=== PATIENT | female | born 1960 | race Caucasian/White ===

== ENCOUNTER 2017-03-06 07:14 | Emergency (ER) | payer OTHER ==
[2017-03-06] MEDS ORDERED: SODIUM CHLORIDE 0.9% 1,000 ML IV STA (08:06)
[2017-03-06] MEDS ORDERED: KETOROLAC 30 MG/ML 1 ML VIAL IVP STA (08:06)
[2017-03-06] MEDS ORDERED: HYDROmorphone 1 MG/ML 1 ML SYRINGE IVP STA (08:06)
[2017-03-06] MEDS ORDERED: ONDANSETRON 4 MG/2 ML VIAL IVP STA (08:06)
--- NOTE | 2017-03-06 08:11 | ED ---
Abdominal Pain HPI - General Chief Complaint: Abdominal Pain Stated Complaint: Left leg pain Time Seen by Provider: 03/06/17 08:05 Source: patient, RN notes reviewed Mode of arrival: wheelchair Limitations: no limitations - History of Present Illness Initial Comments: 56-year-old female presents emergency Department with chief complaint of left flank pain. Patient states she had a sudden onset of left flank pain that started around 3 AM this morning. Patient states nothing makes the pain feel better or worse. She did try taking Craigmont at home twice but no relief of pain. Patient states that she has no history kidney stones. Patient that she is nauseated and has had some vomiting. Denies chest pain, shortness breath, fever , chills, dysuria hematuria. Patient denies any trauma or any injuries. - Related Data Home Medications Medication Instructions Recorded Confirmed ALPRAZolam [Xanax] 1 mg PO HS 01/29/16 03/06/17 Citalopram Hydrobromide 40 mg PO HS 01/29/16 03/06/17 [Citalopram HBr] Cyclobenzaprine [Flexeril] 10 mg PO DAILY 01/29/16 03/06/17 Ergocalciferol [Vitamin D2 50,000 unit PO WEEKLY 01/29/16 03/06/17 (DRISDOL)] HYDROcodone/APAP 10-325MG [Craigmont 1 tab PO Q4-6H PRN 01/29/16 03/06/17 10-325] PHENobarbital 97.2 mg PO HS 01/29/16 03/06/17 Dextroamphetamine/Amphetamine 30 mg PO QAM 03/06/17 03/06/17 [Adderall Xr] Dextroamphetamine/Amphetamine 30 mg PO DAILY 03/06/17 03/06/17 [Adderall] PHENobarbital [Luminal] 16.2 mg PO HS 03/06/17 03/06/17 Previous Rx's Medication Instructions Recorded Ketorolac [Toradol] 10 mg PO Q8HR #15 tab 03/06/17 Levofloxacin [Levaquin] 500 mg PO DAILY #10 tab 03/06/17 Ondansetron Odt [Zofran Odt] 4 mg PO Q8HR PRN #10 tab 03/06/17 Allergies Allergy/AdvReac Type Severity Reaction Status Date / Time No Known Allergies Allergy Verified 03/06/17 07:49 Review of Systems ROS Statement: Those systems with pertinent positive or pertinent negative responses have been documented in the HPI. ROS Other: All systems not noted in ROS Statement are negative. Past Medical History Past Medical History: Seizure Disorder History of Any Multi-Drug Resistant Organisms: MRSA Date of last positivie culture/infection: 2013 MDRO Source:: hand Past Surgical History: Orthopedic Surgery, Tonsillectomy Past Psychological History: Anxiety, Depression Smoking Status: Current every day smoker Past Alcohol Use History: Occasional Past Drug Use History: None Reported General Exam Limitations: no limitations General appearance: alert, in no apparent distress Head exam: Present: atraumatic, normocephalic, normal inspection Respiratory exam: Present: normal lung sounds bilaterally. Absent: respiratory distress, wheezes, rales, rhonchi, stridor Cardiovascular Exam: Present: regular rate, normal rhythm, normal heart sounds. Absent: systolic murmur, diastolic murmur, rubs, gallop, clicks GI/Abdominal exam: Present: soft, tenderness (Minimal tenderness the left flank region patient's pain is essentially unchanged with palpation), normal bowel sounds. Absent: distended, guarding, rebound, rigid Back exam: Present: CVA tenderness (L). Absent: CVA tenderness (R) Neurological exam: Present: alert, oriented X3, CN II-XII intact Skin exam: Present: warm, dry, intact, normal color. Absent: rash Course Vital Signs 03/06/17 07:16 Temperature 98.0 F Pulse Rate 63 Respiratory 20 Rate Blood Pressure 134/80 O2 Sat by Pulse 100 Oximetry Medical Decision Making - Medical Decision Making Dr. Miranda discuss case with Dr. Fong who recommends antibiotics, pain medication and which she currently takes Craigmont and follow-up this week in office. Return parameters were discussed. - Lab Data Result diagrams: 03/06/17 07:45 03/06/17 07:45 Lab Results 03/06/17 03/06/17 03/06/17 Range/Units 07:45 07:45 09:15 WBC 11.1 H (3.8-10.6) k/uL RBC 4.47 (3.80-5.40) m/uL Hgb 12.9 (11.4-16.0) gm/dL Hct 39.5 (34.0-46.0) % MCV 88.4 (80.0-100.0) fL MCH 28.8 (25.0-35.0) pg MCHC 32.6 (31.0-37.0) g/dL RDW 13.8 (11.5-15.5) % Plt Count 263 (150-450) k/uL Neutrophils % 87 % Lymphocytes % 9 % Monocytes % 2 % Eosinophils % 1 % Basophils % 0 % Neutrophils # 9.6 H (1.3-7.7) k/uL Lymphocytes # 1.0 (1.0-4.8) k/uL Monocytes # 0.2 (0-1.0) k/uL Eosinophils # 0.1 (0-0.7) k/uL Basophils # 0.0 (0-0.2) k/uL Sodium 142 (137-145) mmol/L Potassium 3.5 (3.5-5.1) mmol/L Chloride 112 H (98-107) mmol/L Carbon Dioxide 21 L (22-30) mmol/L Anion Gap 9 mmol/L BUN 14 (7-17) mg/dL Creatinine 0.51 L (0.52-1.04) mg/dL Est GFR (MDRD) Af Amer >60 (>60 ml/min/1.73 sqM) Est GFR (MDRD) Non-Af >60 (>60 ml/min/1.73 sqM) Glucose 115 H (74-99) mg/dL Calcium 7.8 L (8.4-10.2) mg/dL Total Bilirubin 0.6 (0.2-1.3) mg/dL AST 26 (14-36) U/L ALT 34 (9-52) U/L Alkaline Phosphatase 96 (38-126) U/L Total Protein 6.7 (6.3-8.2) g/dL Albumin 3.6 (3.5-5.0) g/dL Amylase 63 (30-110) U/L Lipase 97 (23-300) U/L Urine Color Light Red Urine Appearance Cloudy H (Clear) Urine pH 6.0 (5.0-8.0) Ur Specific [place] 1.017 (1.001-1.035) Urine Protein 1+ H (Negative) Urine Glucose (UA) Negative (Negative) Urine Ketones Negative (Negative) Urine Blood Large H (Negative) Urine Nitrite Negative (Negative) Urine Bilirubin Negative (Negative) Urine Urobilinogen <2.0 (<2.0) mg/dL Ur Leukocyte Esterase Large H (Negative) Urine RBC >182 H (0-5) /hpf Urine WBC 104 H (0-5) /hpf Ur Squamous Epith Cells 3 (0-4) /hpf Urine Bacteria Rare H (None) /hpf Urine Mucus Rare H (None) /hpf Disposition Clinical Impression: Ureteral calculi, Left flank pain Disposition: HOME SELF-CARE Condition: Stable Instructions: Kidney Stones (ED) Additional Instructions: Please return to the Emergency Department if symptoms worsen or any other concerns. Prescriptions: Ketorolac [Toradol] 10 mg PO Q8HR #15 tab Levofloxacin [Levaquin] 500 mg PO DAILY #10 tab Ondansetron Odt [Zofran Odt] 4 mg PO Q8HR PRN #10 tab PRN Reason: Nausea Referrals: Hank Jason MD [Primary Care Provider] - 1-2 days Srikanth Trevino MD [STAFF PHYSICIAN] - 1-2 days Time of Disposition: 10:24
[2017-03-06 08:35] LABS: Basophils % (A) 0 %; CH 28.1; Eosinophils # (A) 0.1 k/uL (0-0.7); Eosinophils % (A) 1 %; HCT 39.5 % (34.0-46.0); HDW 2.39; HGB 12.9 gm/dL (11.4-16.0); Luc # (Auto) 0.12; Luc % (Auto) 1; Lymphocytes % (A) 9 %; MCH 28.8 pg (25.0-35.0); MCHC 32.6 g/dL (31.0-37.0); MCV 88.4 fL (80.0-100.0); Mean Platelet Volume 7.8; Monocytes # (A) 0.2 k/uL (0-1.0); Monocytes % (A) 2 %; Neutrophils # (A) 9.6 k/uL (1.3-7.7); Neutrophils % (A) 87 %; RBC 4.47 m/uL (3.80-5.40); RDW 13.8 % (11.5-15.5); WBC 11.1 k/uL (3.8-10.6); WBC (Perox) 11.44
--- NOTE | 2017-03-06 08:43 | XR ---
EXAMINATION TYPE: XR KUB DATE OF EXAM: 03/06/2017 8:34 AM CLINICAL HISTORY: Left-sided pain for 5 hours. TECHNIQUE: 2 upright KUB images of the abdomen are obtained COMPARISON: None. FINDINGS: Scattered gas is seen in non-distended small bowel loops. Gas and fecal material is seen in non-distended colon. Calcification in pelvis is favored calcified fibroid. There is 1.6 cm calcifi cation central left midabdomen at L2-L3 disc space level suspect renal pelvic stone. No pneumoperiton eum is seen. Heart size is mildly enlarged. Visualized osseous structures are demineralized. IMPRESSION: Overall nonobstructive bowel gas pattern. A 1.6 cm calculus centrally left kidney likel y in pelvis or possibly UPJ causing patient's symptoms. Urology follow-up advised.
[2017-03-06 08:48] LABS: ALT 34 U/L (9-52); AST 26 U/L (14-36); Alkaline Phosphatase 96 U/L (38-126); Amylase 63 U/L (30-110); Anion Gap 9 mmol/L; Blood Urea Nitrogen 14 mg/dL (7-17); Calcium 7.8 mg/dL (8.4-10.2); Carbon Dioxide 21 mmol/L (22-30); Chloride 112 mmol/L (98-107); Glucose 115 mg/dL (74-99); Non-African American GFR(MDRD) >60 (>60 ml/min/1.73 sqM); Sodium 142 mmol/L (137-145); Total Bilirubin 0.6 mg/dL (0.2-1.3); Total Protein 6.7 g/dL (6.3-8.2)
[2017-03-06 08:51] LABS: Potassium 3.5 mmol/L (3.5-5.1)
[2017-03-06 09:27] LABS: Appearance,Urine Cloudy (Clear); Bacteria,Urine Rare /hpf; Bilirubin,Urine Negative (Negative); Glucose,Urine (UA) Negative (Negative); Ketones,Urine Negative (Negative); Leukocyte Esterase,Urine Large (Negative); Mucus,Urine Rare /hpf; Nitrite,Urine Negative (Negative); Particle Count 7680; Protein,Urine 1+ (Negative); RBC,Urine >182 /hpf (0-5); Specific Gravity,Urine 1.017 (1.001-1.035); Squamous Epithelial Cell,Urine 3 /hpf (0-4); UA Billing (MACRO vs. MICRO) MICRO; Urobilinogen,Urine <2.0 mg/dL (<2.0); WBC,Urine 104 /hpf (0-5)
--- NOTE | 2017-03-06 09:31 | CT ---
EXAMINATION TYPE: CT abdomen pelvis wo con DATE OF EXAM: 03/06/2017 9:10 AM COMPARISON: NONE HISTORY: 56-year-old female Lt side pain CT DLP: 487 mGycm. Automated exposure control for dose reduction was used. TECHNIQUE: Contiguous axial scanning of the abdomen and pelvis without IV contrast. Coronal and sagit andrea reconstructions performed. FINDINGS: The heart is normal size without pericardial effusion. Mitral annular calcifications are noted. Promi nent dependent atelectasis is demonstrated. Calcification at the right hepatic dome could reflect prior granulomatous disease. Otherwise, noncont rast appearance of the liver, gallbladder, adrenal glands, right kidney, spleen, pancreas show no bertin ss abnormality. A couple small 7 mm hyperdense areas in the mid left kidney could represent tiny hemorrhagic cysts or early forming calculi. There is a 1.2 cm calculus at the left UPJ with mild hydronephrosis. There is asymmetric left renal e nlargement with perinephric stranding. Some scattered nonenlarged and borderline to mildly enlarged mesenteric lymph nodes are present measu ring up to 1 cm, coronal image 35. No dilated small bowel, free fluid, or free air. Normal appendix. Moderate stool burden without pericolonic inflammatory change. Bladder urine distended. Uterus is visualized with a a calcified posterior fundal fibroid measuring 1 .7 cm. Ovaries not clearly delineated from adjacent bowel loops. No abnormal fluid collection in the pelvis. 2. Mildly enlarged external iliac chain lymph nodes measuring up to 9 mm on the left. Bones: Mild degenerative changes at the hips. Additional degenerative changes lower lumbar spine. Sev ere endplate Schmorl's node of T9 through T11 and also L2 vertebral bodies. No osseous destructive pr ocess. IMPRESSION: 1. A 1.2 cm obstructive calculus at the left UPJ with mild hydronephrosis. The degree of renal enlar gement and perinephric stranding is somewhat out of proportion to the degree of hydronephrosis. Corre late to exclude superimposed infection. 2. A couple 7 mm hyperdense areas within the mid left kidney could represent tiny hemorrhagic cysts or early forming renal calculi. 3. Scattered nonenlarged and borderline to mildly enlarged mesenteric lymph nodes measuring up to 1 cm and borderline to mildly enlarged external iliac chain lymph node measuring up to 9 mm on the left . Findings probably reactive/post inflammatory. Consider follow-up in 3 months to ensure stability/re solution.
[2017-03-06] MEDS ORDERED: LEVOFLOXACIN 500 MG TAB PO STA (10:24)
[2017-03-06 10:32] VITALS: BP 126/71; PULSE 70; RESP 18; TEMP 97.4
== END 2017-03-06 10:40 | disposition home or self-care (01) ==
LOC: EC 07:14
DX: N20.1 Calculus of ureter (principal); R11.2 Nausea with vomiting, unspecified; M79.605 Pain in left leg; F41.9 Anxiety disorder, unspecified; F32.9 Major depressive disorder, single episode, unspecified; G40.909 Epilepsy, unspecified, not intractable, without status epilepticus; F17.200 Nicotine dependence, unspecified, uncomplicated; Z79.899 Other long term (current) drug therapy
CPT/HCPCS: 36415; 80053; 82150; 83690; 85025; 81001; 87086; 74000; 74176; 99284; 96374; 96375 ×2; 96361 ×2; J2405; J1885; J1170

== ENCOUNTER 2019-09-08 12:51 | Emergency (ER) | payer OTHER ==
[2019-09-08 12:57] VITALS: BP 114/69; PULSE 85; RESP 18; TEMP 97.7
--- NOTE | 2019-09-08 14:02 | XR ---
EXAMINATION TYPE: XR foot complete LT, XR ankle complete LT DATE OF EXAM: 09/08/2019 CLINICAL HISTORY: Left foot pain after fall a few days ago. TECHNIQUE: Frontal, lateral, and oblique images of the left foot and ankle are obtained. COMPARISON: None FINDINGS: There is mild diffuse subcutaneous edema. There is no acute fracture/dislocation evident i n the left foot. Type II os naviculare is incidentally seen. The joint spaces in the left foot appear within normal limits. The overlying soft tissue appears unremarkable. Small plantar heel spur is se en. No acute fracture or dislocation of the left ankle. Ankle mortise maintains normal alignment. Jose C ar dome is intact. Small Achilles heel spur. IMPRESSION: 1. Mild generalized soft tissue swelling with no acute fracture or dislocation in the left foot. 2. Incidentally noted type II os naviculare. If there is point tenderness consider os naviculare synd denisa.
--- NOTE | 2019-09-08 14:20 | ED ---
Lower Extremity Injury HPI - General Chief Complaint: Extremity Injury, Lower Stated Complaint: fall/ankle pain Time Seen by Provider: 09/08/19 13:00 Source: patient Mode of arrival: ambulatory Limitations: no limitations - History of Present Illness Initial Comments: Patient is a 59-year-old female presenting in the emergency Department with complaints of left ankle and foot pain after she fell yesterday. Patient states her legs gave out yesterday and she rolled her left ankle. Patient states she also had some right knee pain. She denies any previous injuries or surgeries to her right or left lower extremities. Patient states she's been having a hard time putting weight on her left foot. Patient denies any other injuries from the fall yesterday. Patient denies hitting her head, LOC, being on blood thinners. Patient has no other complaints at this time. Upon arrival to ER, vital signs are stable. - Related Data Home Medications Medication Instructions Recorded Confirmed PHENobarbital 97.2 mg PO HS 01/29/16 09/08/19 [id number] 2 tab PO Q4HR PRN 09/08/19 09/08/19 [Excedrin] PHENobarbital [Luminal] 32.4 mg PO HS 09/08/19 09/08/19 Ranitidine HCl [Zantac] 150 mg PO DAILY PRN 09/08/19 09/08/19 Allergies Allergy/AdvReac Type Severity Reaction Status Date / Time No Known Allergies Allergy Verified 09/08/19 14:03 Review of Systems ROS Statement: Those systems with pertinent positive or pertinent negative responses have been documented in the HPI. ROS Other: All systems not noted in ROS Statement are negative. Past Medical History Past Medical History: Seizure Disorder History of Any Multi-Drug Resistant Organisms: MRSA Date of last positivie culture/infection: 2013 MDRO Source:: hand Past Surgical History: Orthopedic Surgery, Tonsillectomy Past Psychological History: Anxiety, Depression Smoking Status: Current every day smoker Past Alcohol Use History: Rare Past Drug Use History: None Reported General Exam - General Exam Comments Initial Comments: GENERAL: Well-appearing, well-nourished and in no acute distress. HEAD: Atraumatic, normocephalic. EYES: Pupils equal round and reactive to light, extraocular movements intact, sclera anicteric, conjunctiva are normal. ENT: Moist mucous membranes. NECK: Normal range of motion, supple without lymphadenopathy or JVD. LUNGS: Breath sounds clear to auscultation bilaterally and equal. No wheezes rales or rhonchi. HEART: Regular rate and rhythm without murmurs, rubs or gallops. : Deferred EXTREMITIES: Pain with palpation of the left lateral malleolus as well as left lateral foot. There is mild swelling present. Patient has normal range of motion of her left ankle and foot. Neurovascular intact. She also has a small bruise on the medial aspect of the right knee. Patient has full range of motion of her right knee. NEUROLOGICAL: Cranial nerves II through XII grossly intact. Normal speech PSYCH: Normal mood, normal affect. SKIN: Warm, Dry, normal turgor, no rashes or lesions noted. Limitations: no limitations Course Vital Signs 09/08/19 12:53 Temperature 97.7 F Pulse Rate 85 Respiratory 18 Rate Blood Pressure 114/69 O2 Sat by Pulse 97 Oximetry Medical Decision Making - Medical Decision Making Patient is a 59-year-old female presenting with left ankle and foot pain as well as mild right knee pain after falling yesterday. Patient denies any other injuries from her fall. X-rays of her left foot and ankle revealed no acute abnormality.Incidental noted type II os naviculare. Patient will be given an George wrap for compression and will continue with ice, elevation. Patient will use walker at home and will continue to weight-bear as tolerated. Patient will follow up with her PCP if symptoms persist after one to 2 weeks. Patient is stable for discharge at this time and she is in agreement with this plan of care. Return parameters were discussed with the patient she verbalized understanding. Case discussed with Dr. Voss. Disposition Clinical Impression: Left foot pain, Left ankle sprain, Contusion of right knee Disposition: HOME SELF-CARE Condition: Stable Instructions (If sedation given, give patient instructions): Ankle Sprain (ED), Foot Contusion (ED) Additional Instructions: Please return to the Emergency Department if symptoms worsen or any other concerns. Alternate between ibuprofen and Tylenol for pain relief. Rest, ice, compression with George wrap as well as elevation for symptom relief. Up with orthopedics or PCP if symptoms persist over 1-2 weeks. Is patient prescribed a controlled substance at d/c from ED?: No Referrals: None,Stated [Primary Care Provider] - 1-2 days
== END 2019-09-08 14:37 | disposition home or self-care (01) ==
LOC: EC 12:51
DX: S93.402A Sprain of unspecified ligament of left ankle, initial encounter (principal); S80.01XA Contusion of right knee, initial encounter; G40.909 Epilepsy, unspecified, not intractable, without status epilepticus; F17.200 Nicotine dependence, unspecified, uncomplicated; Z79.899 Other long term (current) drug therapy; W19.XXXA Unspecified fall, initial encounter
CPT/HCPCS: 99283

== ENCOUNTER → 2023-08-28 | Outpatient (CLI) | payer MEDICARE, BC ==
[2023-08-28 16:11] LABS: ALT 50 U/L (8-44); AST 25 U/L (13-35); Albumin 4.5 d/dL (3.8-4.9); Alkaline Phosphatase 119 U/L (41-126); BUN/Creat Ratio 25.22 Ratio (12.00-20.00); Blood Urea Nitrogen 22.7 mg/dL (9.0-27.0); Calcium 9.7 mg/dL (8.7-10.3); Carbon Dioxide 26.5 mmol/L (21.6-31.8); Chloride 102 mmol/L (96-109); Glucose 107 mg/dL (70-110); Potassium 4.7 mmol/L (3.5-5.5); Sodium 142 mmol/L (135-145); T4, Free (Free Thyroxine) 1.16 ng/dL (0.80-1.80); Total Bilirubin 0.2 mg/dL (0.3-1.2); Total Protein 7.5 d/dL (6.2-8.2)
[2023-08-28 18:47] LABS: HGB 14.1 d/dL (12.0-15.0); MCH 27.4 pg (27.0-32.0); MCV 91.3 FL (80.0-97.0); Mean Platelet Volume 10.4 FL (9.5-12.2); NRBC Per 100 WBC 0 X 10*3/uL (0.00-0.01); Platelet Count 260 X 10*3/uL (140-440); RBC 5.15 X 10*6/uL (4.10-5.20); WBC 7.57 X 10*3/uL (4.50-10.00)
[2023-08-28 19:31] LABS: Erythrocyte Sedimentation Rate 15 mm/Hr (0-30)
[2023-08-29 14:47] LABS: C-ANCA <1:20 Titer (<1:20)
== END | disposition home or self-care (01) ==
LOC: LABWHC1 09:18
PROVIDERS: ATTEND Psychiatry & Neurology Neurology
DX: G44.89 Other headache syndrome (principal); G40.89 Other seizures; E55.9 Vitamin D deficiency, unspecified; F41.9 Anxiety disorder, unspecified; M54.2 Cervicalgia; G47.19 Other hypersomnia; M54.16 Radiculopathy, lumbar region; R06.83 Snoring; R20.2 Paresthesia of skin; R26.9 Unspecified abnormalities of gait and mobility; R41.840 Attention and concentration deficit
CPT/HCPCS: 36415; 80053; 82306; 82542; 82607; 83036; 84439; 84443; 85027; 85652; 86038; 86039; 86140; 86255; 86334; 86480; 86780

== ENCOUNTER 2023-10-19 09:39 | Day surgery (SDC) | payer MEDICARE, BC ==
[2023-10-17 13:41] VITALS: BMI 34.7
[~2023-10-19 09:39] MED LIST: LACTATED RINGERS 1,000 ML IV SCH; LIDOCAINE 1% (10MG/ML) FOR IV START INTRADERMA PRN
[2023-10-19 10:08] VITALS: TEMP 98.4
[2023-10-19] MEDS ORDERED: PROPOFOL 10 MG/ML 20 ML VIAL IV ONE (10:19)
[2023-10-19] MEDS ORDERED: LIDOCAINE 2% (PF) 20 MG/ML 5 ML VIAL ONE (10:19)
--- NOTE | 2023-10-19 10:52 | P.PCN ---
Date of Procedure: 10/19/23 Procedure(s) Performed: Brief history: Patient is a pleasant 63-year-old white female scheduled for an elective upper endoscopy as well as colonoscopy as a part of evaluation of GERD/ intermittent dysphagia to solids and screening for colon cancer Procedure performed: Esophagogastroduodenoscopy with biopsy and dilation Colonoscopy Preoperative diagnosis: Intermittent dysphagia to solids/GERD Screening for colon cancer Anesthesia: MAC Procedure: After informed consent was obtained from the patient was brought into the endoscopy unit and IV sedation was administered by anesthesia under continuous monitoring. Initially upper endoscopy was done. The Olympus GF 160 video endoscope was inserted inserted into the mouth and esophagus intubated without any difficulty and was gradually advanced into the stomach and duodenum and carefully examined. The bulb and second part of the duodenum appeared normal. The scope was then withdrawn into the stomach adequately insufflated with air and upon careful examination the antrum had mild gastritis and biopsies were done from this area. Cause of the body, cardia and fundus appeared normal. The scope was then withdrawn into the esophagus. The GE junction was located at 40 cm to the incisors. It appeared regular with no erythema erosions or ulc erations. There was a widely patent distal esophageal Schatzki's ring that was dilated with 18-20 mm TTS balloon for 60 seconds. Rest of the esophagus appeared normal. Patient tolerated the procedure well. At this time the patient continued to remain sedation. Initial digital rectal examination was normal. Olympus CF 160 video colonoscope was then inserted into the rectum and gradually advanced to the cecum without any difficulty. Careful examination was performed as the scope was gradually being withdrawn. The prep was excellent. The cecum, ascending colon, transverse colon, descending colon, sigmoid colon and rectum appeared normal. Retroflexion was performed in the rectum and no lesions were noted. Patient tolerated the procedure well. Impression: 1. Upper endoscopy revealed mild antral gastritis and distal esophageal Schatzki's ring status post balloon dilation using 18-20 mm TTS balloon 2. Colonoscopy was within normal limits with no evidence of colorectal neoplasia Recommendations: Findings of this examination were discussed with the patient as well as her family. She was advised to be on clear liquid diet for 2 hours. Continue with protonix 40 mg twice daily and follow antireflux measures. Recommend a repeat screening colonoscopy in 10 years
[2023-10-19 11:29] VITALS: BP 130/89; PULSE 75; RESP 16
== END 2023-10-19 11:25 | disposition home or self-care (01) ==
LOC: ORWHC2ENDO 09:39
PROVIDERS: ATTEND Internal Medicine Gastroenterology
DX: Z12.11 Encounter for screening for malignant neoplasm of colon (principal); K21.9 Gastro-esophageal reflux disease without esophagitis; K29.50 Unspecified chronic gastritis without bleeding; K22.2 Esophageal obstruction; F41.9 Anxiety disorder, unspecified; F32.A Depression, unspecified; Z79.899 Other long term (current) drug therapy
CPT/HCPCS: 88305; 43239; 43249; G0105; J2704; J2001; C1726; 45378

== ENCOUNTER 2023-11-12 15:50 | Inpatient (IN) | payer MEDICARE, BC ==
--- NOTE | 2023-11-12 17:28 | ED ---
General Adult HPI - General Chief complaint: Arrhythmia/Palpitations Stated complaint: high hr Time Seen by Provider: 11/12/23 16:36 Source: patient, RN notes reviewed Mode of arrival: ambulatory Limitations: no limitations - History of Present Illness Initial comments: Patient is a pleasant 63-year-old female presenting to the emergency department with concern for high heart rate. Patient did go to urgent care secondary to chest congestion which she has had for the past one week. Patient does have some mild associated dyspnea especially with lying down. No leg pain or leg swelling. No calf pain. No chest pain. No palpitations. No history of similar symptoms previously. No known history of cardiac dysrhythmia. Patient states her is a family history of atrial fibrillation. Patient denies any fever or nasal congestion or other upper respiratory symptoms. - Related Data Home Medications Medication Instructions Recorded Confirmed Amitriptyline HCl [Elavil] 100 mg PO HS 07/26/23 11/12/23 Cyclobenzaprine [Flexeril] 10 mg PO HS 07/26/23 11/12/23 Divalproex ER [Depakote ER] 750 mg PO HS 07/26/23 11/12/23 Melatonin [Melatonin ER] 10 mg PO HS 07/26/23 11/12/23 Cholecalciferol (Vitamin D3) 1,250 mcg PO DAILY 10/17/23 11/12/23 [Vitamin D3] Multivitamin [Multivitamins Adult 1 tab PO DAILY 10/17/23 11/12/23 Gummies] Previous Rx's Medication Instructions Recorded Pantoprazole [Protonix] 40 mg PO AC-BID #60 tab 07/27/23 Allergies Allergy/AdvReac Type Severity Reaction Status Date / Time hyoscyamine AdvReac Nausea Verified 11/12/23 17:56 Review of Systems ROS Statement: Those systems with pertinent positive or pertinent negative responses have been documented in the HPI. ROS Other: All systems not noted in ROS Statement are negative. Constitutional: Denies: fever Eyes: Denies: eye pain ENT: Denies: ear pain Respiratory: Reports: as per HPI Cardiovascular: Reports: orthopnea. Denies: chest pain, palpitations Endocrine: Denies: fatigue Gastrointestinal: Denies: abdominal pain Genitourinary: Denies: dysuria Past Medical History Past Medical History: GERD/Reflux, Seizure Disorder History of Any Multi-Drug Resistant Organisms: MRSA Date of last positivie culture/infection: 2013 MDRO Source:: hand Past Surgical History: Orthopedic Surgery, Tonsillectomy Additional Past Surgical History / Comment(s): finger Past Anesthesia/Blood Transfusion Reactions: No Reported Reaction Past Psychological History: Anxiety, Depression Smoking Status: Former smoker Past Alcohol Use History: None Reported Past Drug Use History: None Reported General Exam Limitations: no limitations General appearance: alert, in no apparent distress Eye exam: Present: normal appearance Neck exam: Present: normal inspection Respiratory exam: Present: normal lung sounds bilaterally Cardiovascular Exam: Present: tachycardia, irregular rhythm GI/Abdominal exam: Present: soft. Absent: tenderness Extremities exam: Present: normal inspection. Absent: pedal edema, calf tenderness Neurological exam: Present: alert Psychiatric exam: Present: normal affect, normal mood Skin exam: Present: normal color Course Vital Signs 11/12/23 16:12 Temperature 99.4 F Pulse Rate 149 H Respiratory 22 Rate Blood Pressure 118/78 O2 Sat by Pulse 98 Oximetry EKG Findings - EKG Results: EKG: interpreted by ERMD (Regular narrow complex tachycardia. Right axis. Nor mal QRS. No acute ST change.) Medical Decision Making - Medical Decision Making Repeat EKG interpreted by myself shows sinus rhythm with a rate of 91. IN 139. QRS 81. QT 369. QTC 418. Normal axis. Normal QRS. Nonspecific T waves. Was pt. sent in by a medical professional or institution (, PA, WHITE WORK CLEANER, urgent care, hospital, or fdc...) When possible be specific @ -Patient was sent in by urgent care Did you speak to anyone other than the patient for history (EMS, parent, family, police, friend...)? What history was obtained from this source @ -No Did you review nursing and triage notes (agree or disagree)? Why? @ -I reviewed and agree with nursing and triage notes Were old charts reviewed (outside hosp., previous admission, EMS record, old EKG, old radiological studies, urgent care reports/EKG's, fdc records)? Report findings @ -Previous chest x-ray reviewed Differential Diagnosis (chest pain, altered mental status, abdominal pain women, abdominal pain men, vaginal bleeding, weakness, fever, dyspnea, syncope, headache, dizziness, GI bleed, back pain, seizure, CVA, palpatations, mental health, musculoskeletal)? @ -Differential Palpitations Ventricular arrhythmias, atrial arrhythmias, myocardial infarction, anemia, thyrotoxicosis, electrolyte imbalance, hypokalemia, pulmonary embolism, pulmonary disease, drugs, alcohol, anxiety, stress.... This is not meant to be an all-inclusive list. EKG interpreted by me (3pts min.). @ -As above X-rays interpreted by me (1pt min.). @ -Chest x-ray shows no acute process CT interpreted by me (1pt min.). @ -Computed tomography scan shows posterior right infiltrate U/S interpreted by me (1pt. min.). @ -None done What testing was considered but not performed or refused? (CT, X-rays, U/S, labs)? Why? @ -None What meds were considered but not given or refused? Why? @ -None Did you discuss the management of the patient with other professionals (professionals i.e. , PA, WHITE WORK CLEANER, lab, RT, psych nurse, manager social services, supervisor [employer], teacher, water resources technical officer, dependency case manager)? Give summary @ -Case was discussed with Dr. Michel, who will admit covering Dr. bradford Was smoking cessation discussed for >3mins.? @ -No Was critical care preformed (if so, how long)? @ -No Were there social determinants of health that impacted care today? How? (Homelessness, low income, unemployed, alcoholism, drug addiction, transportation, low edu. Level, literacy, decrease access to med. care, [facility], rehab)? @ -No Was there de-escalation of care discussed even if they declined (Discuss DNR or withdrawal of care, Hospice)? DNR status @ -No What co-morbidities impacted this encounter? (DM, HTN, Smoking, COPD, CAD, Cancer, CVA, ARF, Chemo, Hep., AIDS, mental health diagnosis, sleep apnea, morbid obesity)? @ -None Was patient admitted / discharged? Hospital course, mention meds given and route, prescriptions, significant lab abnormalities, going to OR and other pertinent info. @ -Patient presents with cough and upper respiratory symptoms with tachycardia dysrhythmia. Patient did convert. Patient on reevaluation now has heart rate of 1:15. Another EKG will be ordered. Third EKG. Case was discussed with Dr. Michel, who will admit covering Dr. bradford. Patient will be admitted with consults with cardiology and pulmonary. Undiagnosed new problem with uncertain prognosis? @ -No Drug Therapy requiring intensive monitoring for toxicity (Heparin, Nitro, Insulin, Cardizem)? @ -No Were any procedures done? @ -No Diagnosis/symptom? @ -, Tachycardia dysrhythmia, pneumonia Acute, or Chronic, or Acute on Chronic? @ -Acute, acute Uncomplicated (without systemic symptoms) or Complicated (systemic symptoms)? @ -default Side effects of treatment? @ -No Exacerbation, Progression, or Severe Exacerbation? @ -No Poses a threat to life or bodily function? How? (Chest pain, [place], [place], pneumonia, PE, COPD, DKA, ARF, appy, cholecystitis, CVA, Diverticulitis, Homicidal, Suicidal, threat to staff... and all critical care pts) @ -No - Lab Data Result diagrams: 11/12/23 17:27 11/12/23 17:27 Lab Results 11/12/23 11/12/23 11/12/23 Range/Units 17:27 17:27 17:27 WBC 11.1 H (3.8-10.6) k/uL RBC 4.97 (3.80-5.40) m/uL Hgb 14.1 (11.4-16.0) gm/dL Hct 43.0 (34.0-46.0) % MCV 86.4 (80.0-100.0) fL MCH 28.4 (25.0-35.0) pg MCHC 32.8 (31.0-37.0) g/dL RDW 14.3 (11.5-15.5) % Plt Count 347 (150-450) k/uL MPV 7.3 Neutrophils % 79 % Lymphocytes % 14 % Monocytes % 4 % Eosinophils % 2 % Basophils % 0 % Neutrophils # 8.7 H (1.3-7.7) k/uL Lymphocytes # 1.6 (1.0-4.8) k/uL Monocytes # 0.4 (0-1.0) k/uL Eosinophils # 0.3 (0-0.7) k/uL Basophils # 0.0 (0-0.2) k/uL PT 10.1 (10.0-12.5) sec INR 0.9 (<1.2) APTT 24.4 (22.0-30.0) sec D-Dimer 0.97 H (<0.60) mg/L FEU Sodium 140 (137-145) mmol/L Potassium 4.9 (3.5-5.1) mmol/L Chloride 104 (98-107) mmol/L Carbon Dioxide 25 (22-30) mmol/L Anion Gap 11 mmol/L BUN 25 H (7-17) mg/dL Creatinine 0.59 (0.52-1.04) mg/dL Est GFR (CKD-EPI)AfAm >90 (>60 ml/min/1.73 sqM) Est GFR (CKD-EPI)NonAf >90 (>60 ml/min/1.73 sqM) Glucose 108 H (74-99) mg/dL Calcium 9.5 (8.4-10.2) mg/dL Magnesium 2.1 (1.6-2.3) mg/dL Total Bilirubin 0.6 (0.2-1.3) mg/dL AST 40 H (14-36) U/L ALT 28 (4-34) U/L Alkaline Phosphatase 121 (38-126) U/L Troponin I (0.000-0.034) ng/mL NT-Pro-B Natriuret Pep 360 pg/mL Total Protein 8.3 H (6.3-8.2) g/dL Albumin 4.4 (3.5-5.0) g/dL TSH 2.540 (0.465-4.680) mIU/L Influenza Type A (PCR) (Not Detectd) Influenza Type B (PCR) (Not Detectd) RSV (PCR) (Not Detectd) SARS-CoV-2 (PCR) (Not Detectd) 11/12/23 11/12/23 Range/Units 17:27 17:27 WBC (3.8-10.6) k/uL RBC (3.80-5.40) m/uL Hgb (11.4-16.0) gm/dL Hct (34.0-46.0) % MCV (80.0-100.0) fL MCH (25.0-35.0) pg MCHC (31.0-37.0) g/dL RDW (11.5-15.5) % Plt Count (150-450) k/uL MPV Neutrophils % % Lymphocytes % % Monocytes % % Eosinophils % % Basophils % % Neutrophils # (1.3-7.7) k/uL Lymphocytes # (1.0-4.8) k/uL Monocytes # (0-1.0) k/uL Eosinophils # (0-0.7) k/uL Basophils # (0-0.2) k/uL PT (10.0-12.5) sec INR (<1.2) APTT (22.0-30.0) sec D-Dimer (<0.60) mg/L FEU Sodium (137-145) mmol/L Potassium (3.5-5.1) mmol/L Chloride (98-107) mmol/L Carbon Dioxide (22-30) mmol/L Anion Gap mmol/L BUN (7-17) mg/dL Creatinine (0.52-1.04) mg/dL Est GFR (CKD-EPI)AfAm (>60 ml/min/1.73 sqM) Est GFR (CKD-EPI)NonAf (>60 ml/min/1.73 sqM) Glucose (74-99) mg/dL Calcium (8.4-10.2) mg/dL Magnesium (1.6-2.3) mg/dL Total Bilirubin (0.2-1.3) mg/dL AST (14-36) U/L ALT (4-34) U/L Alkaline Phosphatase (38-126) U/L Troponin I <0.012 (0.000-0.034) ng/mL NT-Pro-B Natriuret Pep pg/mL Total Protein (6.3-8.2) g/dL Albumin (3.5-5.0) g/dL TSH (0.465-4.680) mIU/L Influenza Type A (PCR) Not Detected (Not Detectd) Influenza Type B (PCR) Not Detected (Not Detectd) RSV (PCR) Not Detected (Not Detectd) SARS-CoV-2 (PCR) Not Detected (Not Detectd) Disposition Clinical Impression: Tachyarrhythmia, Pneumonia Disposition: ADMITTED IP TO THIS HOSP Is patient prescribed a controlled substance at d/c from ED?: No Referrals: Shadia Pritchard MD [Primary Care Provider] - 1-2 days Time of Disposition: 19:16
[2023-11-12 17:38] LABS: Basophils % (A) 0 %; Eosinophils # (A) 0.3 k/uL (0-0.7); Eosinophils % (A) 2 %; HGB 14.1 gm/dL (11.4-16.0); Lymphocytes # (A) 1.6 k/uL (1.0-4.8); Lymphocytes % (A) 14 %; MCH 28.4 pg (25.0-35.0); MCHC 32.8 g/dL (31.0-37.0); MCV 86.4 fL (80.0-100.0); Mean Platelet Volume 7.3; Monocytes # (A) 0.4 k/uL (0-1.0); Monocytes % (A) 4 %; Neutrophils # (A) 8.7 k/uL (1.3-7.7); Neutrophils % (A) 79 %; Platelet Count 347 k/uL (150-450); RBC 4.97 m/uL (3.80-5.40); RDW 14.3 % (11.5-15.5); WBC 11.1 k/uL (3.8-10.6)
--- NOTE | 2023-11-12 17:48 | XR ---
EXAMINATION TYPE: XR chest 2V DATE OF EXAM: 11/12/2023 COMPARISON: 01/29/2016, 07/26/2023 INDICATION: Dysrhythmia congestion TECHNIQUE: Frontal and lateral views of the chest are obtained. FINDINGS: The heart size is normal. The pulmonary vasculature is normal. The lungs are clear. IMPRESSION: 1. No acute pulmonary process.
[2023-11-12 17:50] LABS: ALT 28 U/L (4-34); AST 40 U/L (14-36); African American GFR (CKD) >90 (>60 ml/min/1.73 sqM); Albumin 4.4 g/dL (3.5-5.0); Alkaline Phosphatase 121 U/L (38-126); Anion Gap 11 mmol/L; Blood Urea Nitrogen 25 mg/dL (7-17); Calcium 9.5 mg/dL (8.4-10.2); Carbon Dioxide 25 mmol/L (22-30); Chloride 104 mmol/L (98-107); Glucose 108 mg/dL (74-99); Magnesium 2.1 mg/dL (1.6-2.3); Non-African American GFR(CKD) >90 (>60 ml/min/1.73 sqM); Potassium 4.9 mmol/L (3.5-5.1); Sodium 140 mmol/L (137-145); Total Bilirubin 0.6 mg/dL (0.2-1.3); Total Protein 8.3 g/dL (6.3-8.2)
[2023-11-12 17:53] LABS: INR 0.9 (<1.2); Partial Thromboplastin Time 24.4 sec (22.0-30.0); Prothrombin Time 10.1 sec (10.0-12.5)
[2023-11-12 17:58] LABS: NT-Pro-B-Type Natriuretic Pept 360 pg/mL
--- NOTE | 2023-11-12 19:06 | CT ---
CT CHEST FOR PULMONARY EMBOLISM. EXAMINATION TYPE: CT angio chest DATE OF EXAM: 11/12/2023 INDICATION: elevated HR and BP CT DLP: 382.9 mGycm, Automated exposure control for dose reduction was used. CONTRAST: Patient injected with 100 ml mL of Isovue 300. COMPARISON: None TECHNIQUE: CT of the chest is performed on a spiral scan at 2 mm thick sections. Study is performed with intravenous contrast timed for evaluation for pulmonary embolism. This will limit additional po rtions of the evaluation. 3-D MIP images reconstructed by the technologist are reviewed on the compu ter in the coronal and sagittal planes. FINDINGS: No persistent filling defects are evident to suggest an acute pulmonary embolism. No mediastinal or hilar adenopathy enlarged by CT criteria is evident. The ascending aorta diameter at the level of the main pulmonary artery is 3.6 cm. The main pulmonary artery diameter at the bifur cation is 2.9 cm. There is consolidation in the posterior right lung base. Underlying mass should be considered. Follow -up is recommended. Limited CT sections are obtained through the upper abdomen. There is moderate fatty transient liver. IMPRESSION: 1. No acute pulmonary embolism. 2. Posterior right lung consolidation. Correlate for pneumonia. Mass is not excluded and follow-up is recommended. 3. Moderate fatty infiltration of the liver.
[2023-11-12] MEDS ORDERED: SODIUM CHLORIDE 0.9% 1,000 ML IV STA (19:13)
[2023-11-12] MEDS ORDERED: AZITHROMYCIN 500 MG in SODIUM CHLORIDE 0.9% 250 ML IVPB STA (19:17)
[2023-11-12] MEDS ORDERED: PNEUMONIA PROTOCOL UTILIZED 1 EACH MISC PO PRN (19:17)
[2023-11-12] MEDS: MELATONIN 5 MG TABLET PO SCH (23:27)
[2023-11-12] MEDS: AMITRIPTYLINE HCL 50 MG TAB PO SCH (23:28)
[2023-11-12] MEDS: DIVALPROEX ER 250 MG TAB.ER.24H PO SCH (23:29)
[2023-11-13] MEDS: MULTIVITAMINS, THERA 1 EACH TAB PO SCH (08:54)
[2023-11-13] MEDS: AZITHROMYCIN 500 MG TAB PO SCH (08:54)
[2023-11-13] MEDS: CHOLECALCIFEROL 125 MCG (5000 IU) TABLET PO SCH (08:54)
[2023-11-13] MEDS: METOPROLOL SUCCINATE (ER) 25 MG TAB.ER.24H PO SCH (08:54)
[2023-11-13] MEDS: PANTOPRAZOLE 40 MG TABLET PO SCH ×2 (08:55→18:09)
--- NOTE | 2023-11-13 10:28 | XR ---
EXAMINATION TYPE: XR chest 2V DATE OF EXAM: 11/13/2023 COMPARISON: 11/12/2023 INDICATION: Pneumonia TECHNIQUE: Frontal and lateral views of the chest are obtained. FINDINGS: The heart size is normal. The pulmonary vasculature is normal. The lungs are clear. IMPRESSION: 1. No acute pulmonary process.
--- NOTE | 2023-11-13 10:34 | P.CRDCN ---
History of Present Illness Consult date: 11/13/23 Reason for Consult (text): tachyarrhythmia History of present illness: History of present illness: This is a 63-year-old female with no previous cardiac history, does not follow with a trader. She has a past medical history of seizure disorder, headache, neurology workup of her cervical and lumbar spine. patient was seen by cardiology in July 2023 for atypical chest painthought to be GI related. We have been asked to evaluate the patient for tachyarrhythmia. Patient states that she went to the walk-in clinic for bronchitis and pinkeye and found to have her heart rate at 150 bpm and was told to come into the hospital for further evaluation. She complains of chronic shortness of breath and excessive sweating. Heart rate is currently 118. Blood pressure 136/80. Patient is a nonsmoker, no alcohol use.patient is seen today in the emergency center waiting for a bed on the observation unit. EKG atrial tachycardia Chest x-ray: No acute process. CTA of the chest revealed no acute pulmonary embolism. Posterior right lung consolidation. Correlate for pneumonia. Mass is not excluded. Moderate fatty infiltration of the liver. WBC 11.1, hemoglobin 14.1. INR 0.9. D-dimer 0.97. A twice normal. BUN 25 creatinine 0.59. Blood sugar 108. AST 40 otherwise liver function tests are normal. Troponin negative 1. TSH 2.54. Influenza A, influenza B, RSV, Covid 19 not detected. Home cardiac medications: None Echocardiogram from 07/26/2023 revealed EF 55%, moderate MR, mild AR. Review Of Systems: At the time of my evaluation: Constitutional: No fever, no chills. No weakness, fatigue or lethargy. Reports sweats. EENT: No headache. No dizziness. Lungs:Reports chronic shortness of breath, cough, no sputum production. No wheezing. Reports dyspnea on exertion Cardiovascular:Reports chest pain, no lower extremity edema. No palpitations. No paroxysmal nocturnal dyspnea. No orthopnea. No lightheadedness or dizziness. No syncopal episodes. Abdominal: No abdominal pain. No nausea, vomiting. No diarrhea. No constipation. No bloody or tarry stools. Genitourinary: No dysuria.. No urinary retention. Musculoskeletal: No myalgias. No muscle weakness, no frequent falls. Integumentary: No wounds. No rash. No unusual bruising. Neurologic: No aphasia. No facial droop. No change in mentation. No head injury. No headache. Physical examination: Gen: This is a 63-year-old female. She is resting and appears to be quite uncomfortable due to pain VS: reviewed HEENT: Head is atraumatic, normocephalic. Pupils equal, round. Sclerae is anicteric. NECK: Supple. No JVD. . LUNGS: Clear to auscultation. No wheezes or rhonchi. No intercostal retractions. HEART: Regular rate and rhythm. No murmur. Mid sternal chest tenderness. ABDOMEN: Soft No tenderness. EXTREMITIES: No pedal edema. No calf tenderness. NEUROLOGICAL: Patient is awake, alert and oriented x3. Assessment: Atrial tachycardia Shortness of breath, dyspnea on exertion Consolidation right lung, possible pneumonia or mass, pulmonary on consult Plan: Start patient on Toprol-XL 25 mg daily Obtain 2-D echocardiogram and Doppler study to assess cardiac structure and function If echocardiogram is unremarkable and heart rate is controlled, patient is cleared for discharge may follow-up in the office for outpatient stress testing with Dr. Meyers. Thank you kindly for this consultation. Nurse practitioner note has been reviewed, I agree with documented findings and plan of care. Patient was seen and examined. Past Medical History Past Medical History: GERD/Reflux, Seizure Disorder History of Any Multi-Drug Resistant Organisms: MRSA Date of last positivie culture/infection: 2013 MDRO Source:: hand Past Surgical History: Orthopedic Surgery, Tonsillectomy Additional Past Surgical History / Comment(s): finger Past Anesthesia/Blood Transfusion Reactions: No Reported Reaction Past Psychological History: Anxiety, Depression Smoking Status: Former smoker Past Alcohol Use History: None Reported Past Drug Use History: None Reported Medications and Allergies Home Medications Medication Instructions Recorded Confirmed Type Amitriptyline HCl [Elavil] 100 mg PO HS 07/26/23 11/12/23 History Cyclobenzaprine [Flexeril] 10 mg PO HS 07/26/23 11/12/23 History Divalproex ER [Depakote ER] 750 mg PO HS 07/26/23 11/12/23 History Melatonin [Melatonin ER] 10 mg PO HS 07/26/23 11/12/23 History Pantoprazole [Protonix] 40 mg PO AC-BID #60 tab 07/27/23 11/12/23 Rx Cholecalciferol (Vitamin D3) 1,250 mcg PO DAILY 10/17/23 11/12/23 History [Vitamin D3] Multivitamin [Multivitamins Adult 1 tab PO DAILY 10/17/23 11/12/23 History Gummies] Allergies Allergy/AdvReac Type Severity Reaction Status Date / Time hyoscyamine AdvReac Nausea Verified 11/12/23 17:56 Physical Exam Vitals: Vital Signs Temp Pulse Resp BP Pulse Ox 11/13/23 08:50 97.4 F L 83 18 108/73 97 11/13/23 00:00 118 H 18 136/80 95 11/12/23 22:49 117 H 18 112/79 94 L 11/12/23 21:00 134 H 21 120/75 11/12/23 20:07 115 H 18 110/86 11/12/23 16:12 99.4 F 149 H 22 118/78 98 Intake and Output 11/12/23 11/13/23 11/13/23 22:59 06:59 14:59 Other: Weight 102.058 kg Results 11/12/23 17:27 11/12/23 17:27 Cardiac Enzymes 11/12/23 11/12/23 Range/Units 17:27 17:27 AST 40 H (14-36) U/L Troponin I <0.012 (0.000-0.034) ng/mL Coagulation 11/12/23 Range/Units 17:27 PT 10.1 (10.0-12.5) sec APTT 24.4 (22.0-30.0) sec CBC 11/12/23 Range/Units 17:27 WBC 11.1 H (3.8-10.6) k/uL RBC 4.97 (3.80-5.40) m/uL Hgb 14.1 (11.4-16.0) gm/dL Hct 43.0 (34.0-46.0) % Plt Count 347 (150-450) k/uL Comprehensive Metabolic Panel 11/12/23 Range/Units 17:27 Sodium 140 (137-145) mmol/L Potassium 4.9 (3.5-5.1) mmol/L Chloride 104 (98-107) mmol/L Carbon Dioxide 25 (22-30) mmol/L BUN 25 H (7-17) mg/dL Creatinine 0.59 (0.52-1.04) mg/dL Glucose 108 H (74-99) mg/dL Calcium 9.5 (8.4-10.2) mg/dL AST 40 H (14-36) U/L ALT 28 (4-34) U/L Alkaline Phosphatase 121 (38-126) U/L Total Protein 8.3 H (6.3-8.2) g/dL Albumin 4.4 (3.5-5.0) g/dL Current Medications Generic Name Dose Route Start Last Admin Trade Name Freq PRN Reason Stop Dose Admin Amitriptyline HCl 100 mg 11/12/23 21:00 11/12/23 23:28 Amitriptyline Hcl 50 Mg Tab PO 50 mg HS MICHAEL Administration Azithromycin 500 mg 11/13/23 09:00 11/13/23 08:54 Azithromycin 500 Mg Tab PO 11/14/23 09:01 500 mg DAILY MICHAEL Administration Protocol Cholecalciferol 125 mcg 11/13/23 09:00 11/13/23 08:54 Cholecalciferol 125 Mcg (5000 Iu) Tablet PO 125 mcg DAILY MICHAEL Administration Cyclobenzaprine HCl 10 mg 11/13/23 21:00 Cyclobenzaprine 10 Mg Tab PO HS MICHAEL Divalproex Sodium 750 mg 11/12/23 22:00 11/12/23 23:29 Divalproex Er 250 Mg Tab.Er.24h PO 750 mg HS MICHAEL Administration Enoxaparin Sodium 40 mg 11/14/23 09:00 Enoxaparin 40 Mg/0.4 Ml Syringe SQ DAILY MICHAEL Famotidine 20 mg 11/14/23 09:00 Famotidine 20 Mg Tab PO DAILY [facility] Ceftriaxone Sodium 2 gm/ 50 mls @ 100 mls/hr 11/13/23 09:00 11/13/23 08:54 Sodium Chloride IVPB 100 mls/hr Q24HR MICHAEL Administration Protocol Melatonin 10 mg 11/12/23 22:00 11/12/23 23:27 Melatonin 5 Mg Tablet PO 10 mg HS MICHAEL Administration Metoprolol Succinate 25 mg 11/13/23 09:00 11/13/23 08:54 Metoprolol Succinate (Er) 25 Mg Tab.Er.24h PO 25 mg DAILY MICHAEL Administration Miscellaneous Information 1 each 11/12/23 19:17 Pneumonia Protocol Utilized 1 Each Misc PO ONCE PRN Per Protocol Multivitamins 1 each 11/13/23 09:00 11/13/23 08:54 Multivitamins, Thera 1 Each Tab PO 1 each DAILY MICHAEL Administration Pantoprazole Sodium 40 mg 11/13/23 07:30 11/13/23 08:55 Pantoprazole 40 Mg Tablet PO 40 mg AC-BID MICHAEL Administration Intake and Output 11/12/23 11/13/23 11/13/23 22:59 06:59 14:59 Other: Weight 102.058 kg 11/12/23 17:27 11/12/23 17:27
--- NOTE | 2023-11-13 12:08 | P.CNPUL ---
History of Present Illness Consult date: 11/13/23 Requesting physician: Danica Michel Reason for consult: dyspnea, hypoxemia, abnormal CXR/CT Chief complaint: Shortness of breath, cough, congestion History of present illness: This is a very pleasant 63-year-old female patient with a known history of esophageal reflux disease, anxiety/depression, seizure disorder, former smoker. He presented to the emergency room yesterday with a 1 week history of increasing shortness of breath, cough congestion sore throat and conjunctivitis. She was seen in the urgent care yesterday who referred her to the emergency room. Chest x-ray revealed no acute pulmonary process. CT angiogram ruled out pulmonary embolism however there was a noted posterior right lung consolidation or possible early pneumonia versus mass. Moderate fatty infiltration of the liver. White count 11.1. Hemoglobin 14.1. Platelets 347. D-dimer 0.97. Sodium 140. Potassium 4.9. Bicarb 25. BUN 25. Creatinine 0.59. Lactic acid 0.9. ProBNP 360. Valproic acid 38.3. Viral screen negative. She is seen today in the emergency department. Currently sitting up in a stretcher. Awake and alert in no acute distress. Maintaining good O2 saturations in the upper 90s on room air. She's afebrile. Hemodynamically stable. She's been initiated on ceftriaxone and azithromycin. Lovenox for DVT prophylaxis. Review of Systems REVIEW OF SYSTEMS: CONSTITUTIONAL: Denies any recent significant weight loss or weight gain. EYES: Denies change in vision. EARS, NOSE, MOUTH, THROAT: Positive for sore throat. CARDIOVASCULAR: Denies chest pain, palpitations or syncopal episodes. RESPIRATORY: Positive for shortness of breath, cough, congestion no hemoptysis. GASTROINTESTINAL: Denies change in appetite, denies abdominal pain GENITOURINARY: Denies hematuria, denies infections. MUSKULOSKELETAL: Denies pain, denies swelling. INTEGUMENTARY: Denies rash, denies eczema. NEUROLOGICAL: Denies recent memory loss, no recent seizure activity. PSYCHIATRIC: Denies anxiety, denies depression. HEMATOLOGIC/LYMPHATIC: Denies anemia, denies enlarged lymph nodes. Past Medical History Past Medical History: GERD/Reflux, Seizure Disorder History of Any Multi-Drug Resistant Organisms: MRSA Date of last positivie culture/infection: 2013 MDRO Source:: hand Past Surgical History: Orthopedic Surgery, Tonsillectomy Additional Past Surgical History / Comment(s): finger Past Anesthesia/Blood Transfusion Reactions: No Reported Reaction Past Psychological History: Anxiety, Depression Smoking Status: Former smoker Past Alcohol Use History: None Reported Past Drug Use History: None Reported Medications and Allergies Home Medications Medication Instructions Recorded Confirmed Type Amitriptyline HCl [Elavil] 100 mg PO HS 07/26/23 11/12/23 History Cyclobenzaprine [Flexeril] 10 mg PO HS 07/26/23 11/12/23 History Divalproex ER [Depakote ER] 750 mg PO HS 07/26/23 11/12/23 History Melatonin [Melatonin ER] 10 mg PO HS 07/26/23 11/12/23 History Pantoprazole [Protonix] 40 mg PO AC-BID #60 tab 07/27/23 11/12/23 Rx Cholecalciferol (Vitamin D3) 1,250 mcg PO DAILY 10/17/23 11/12/23 History [Vitamin D3] Multivitamin [Multivitamins Adult 1 tab PO DAILY 10/17/23 11/12/23 History Gummies] Allergies Allergy/AdvReac Type Severity Reaction Status Date / Time hyoscyamine AdvReac Nausea Verified 11/12/23 17:56 Physical Exam Vitals: Vital Signs Temp Pulse Resp BP Pulse Ox 11/13/23 11:06 97.9 F 102 H 18 121/92 97 11/13/23 08:50 97.4 F L 83 18 108/73 97 11/13/23 00:00 118 H 18 136/80 95 11/12/23 22:49 117 H 18 112/79 94 L 11/12/23 21:00 134 H 21 120/75 11/12/23 20:07 115 H 18 110/86 11/12/23 16:12 99.4 F 149 H 22 118/78 98 Intake and Output 11/12/23 11/13/23 11/13/23 22:59 06:59 14:59 Other: Weight 102.058 kg GENERAL EXAM: Alert, very pleasant 63-year-old female, on room air, comfortable in no apparent distress. HEAD: Normocephalic. EYES: Normal reaction of pupils, equal size. NOSE: Clear with pink turbinates. THROAT: No erythema or exudates. NECK: No masses, no JVD. CHEST: No chest wall deformity. LUNGS: Equal air entry with no crackles, wheeze, rhonchi or dullness. CVS: S1 and S2 normal with no audible murmur, regular rhythm. ABDOMEN: No hepatosplenomegaly, normal bowel sounds, no guarding or rigidity. SPINE: No scoliosis or deformity SKIN: No rashes CENTRAL NERVOUS SYSTEM: No focal deficits, tone is normal in all 4 extremities. EXTREMITIES: There is no peripheral edema. No clubbing, no cyanosis. Per ipheral pulses are intact. Results - Laboratory Findings CBC and BMP: 11/12/23 17:27 11/12/23 17: PT/INR, D-dimer PT 10.1 sec (10.0-12.5) 11/12/23: INR 0.9 (<1.2) 11/12/23 17: D-Dimer 0.97 mg/L FEU (<0.60) H 11/12/23 17:27 Abnormal lab findings: Abnormal Labs 11/12/23 11/12/23 11/12/23 17:27 17:27 17:27 WBC 11.1 H Neutrophils # 8.7 H D-Dimer 0.97 H BUN 25 H Glucose 108 H AST 40 H Total Protein 8.3 H - Diagnostic Findings Chest x-ray: image reviewed CT scan - chest: image reviewed Assessment and Plan Assessment: Dyspnea with cough and congestion secondary to suspected early right lower lobe pneumonia and viral screen negative. Pro-calcitonin pending History of seizures Esophageal reflux disease History of anxiety/depression Former smoker Plan: The patient was seen and evaluated Chest x-ray, CAT scan, labs and medications reviewed Continue ceftriaxone and azithromycin Check a pro-calcitonin Currently stable and on room air We will continue to follow and make further recommendations based on her clinical status I have personally seen and examined the patient, performed the documentation and the assessment and plan as written. Number of minutes spent on the visit: 20.
[2023-11-13] MEDS ORDERED: ASPIRIN-ACET-CAFF 250-250-65MG 1 EACH TAB PO PRN (14:20)
--- NOTE | 2023-11-13 16:32 | P.HPIM ---
History of Present Illness H&P Date: 11/13/23 This is a 63-year-old female patient who presented to the ER with concerns of elevated heart rate. Patient reports she has been having this issue for the past week with increased chest congestion patient went to urgent care instructed come the ER for concerns of elevated heart rate patient also reports that she's had increased shortness of breath while laying down. Patient denies any recent illness or infection. Patient does have a past medical history of GERD, seizure disorder, anxiety, depression and ex-smoker. Chest x-ray performed showing no acute pulmonary process. EKG showing atopic atrial tachycardia with short MA interval possible atrial flutter. Patient's d-dimer was elevated at 0.97 CTA was performed showing no acute pulmonary embolism. Posterior right lung consolidation correlate for pneumonia mass is not excluded and follow-up is recommended moderate fatty infiltration of liver. Patient's troponin negative. BNP 360. Implants are seen COVID-19 negative. White blood cell elevated at 11.1. Current vital signs temp 97.4, heart rate 83, respiratory rate 18, blood pressure 108/73 with pulse ox 97% on room air. Patient started on IV azithromycin and Rocephin. Cardiology and pulmonary service is consulted. 2-D echo and repeat chest x-ray has been ordered. Sputum blood and pro-calcitonin level ordered. At this time patient is resting comfortably in bed. Patient denies chest pain or shortness of breath. Patient denies nausea vomiting or diarrhea. Patient denies any urinary burning or frequency Review of Systems Please refer to HPI otherwise unremarkable Past Medical History Past Medical History: GERD/Reflux, Seizure Disorder History of Any Multi-Drug Resistant Organisms: MRSA Date of last positivie culture/infection: 2013 MDRO Source:: hand Past Surgical History: Orthopedic Surgery, Tonsillectomy Additional Past Surgical History / Comment(s): finger Past Anesthesia/Blood Transfusion Reactions: No Reported Reaction Past Psychological History: Anxiety, Depression Smoking Status: Former smoker Past Alcohol Use History: None Reported Past Drug Use History: None Reported Medications and Allergies Home Medications Medication Instructions Recorded Confirmed Type Amitriptyline HCl [Elavil] 100 mg PO HS 07/26/23 11/12/23 History Cyclobenzaprine [Flexeril] 10 mg PO HS 07/26/23 11/12/23 History Divalproex ER [Depakote ER] 750 mg PO HS 07/26/23 11/12/23 History Melatonin [Melatonin ER] 10 mg PO HS 07/26/23 11/12/23 History Pantoprazole [Protonix] 40 mg PO AC-BID #60 tab 07/27/23 11/12/23 Rx Cholecalciferol (Vitamin D3) 1,250 mcg PO DAILY 10/17/23 11/12/23 History [Vitamin D3] Multivitamin [Multivitamins Adult 1 tab PO DAILY 10/17/23 11/12/23 History Gummies] Allergies Allergy/AdvReac Type Severity Reaction Status Date / Time hyoscyamine AdvReac Nausea Verified 11/12/23 17:56 Physical Exam Vitals: Vital Signs Temp Pulse Resp BP Pulse Ox 11/13/23 08:50 97.4 F L 83 18 108/73 97 11/13/23 00:00 118 H 18 136/80 95 11/12/23 22:49 117 H 18 112/79 94 L 11/12/23 21:00 134 H 21 120/75 11/12/23 20:07 115 H 18 110/86 11/12/23 16:12 99.4 F 149 H 22 118/78 98 Intake and Output 11/12/23 11/13/23 11/13/23 22:59 06:59 14:59 Other: Weight 102.058 kg Head normocephalic Neck supple Lungs diminished lung sounds bilaterally Heart regular rate and rhythm S1-S2, no rub or gallop Abdomen is soft nontender nondistended positive bowel sounds no hepatosplenomegaly Extremities no edema Neuro alert and orientated to 3 Results CBC & Chem 7: 11/12/23 17:27 11/12/23 17:27 Labs: Abnormal Lab Results - Last 24 Hours (Table) 11/12/23 11/12/23 11/12/23 Range/Units 17:27 17:27 17:27 WBC 11.1 H (3.8-10.6) k/uL Neutrophils # 8.7 H (1.3-7.7) k/uL D-Dimer 0.97 H (<0.60) mg/L FEU BUN 25 H (7-17) mg/dL Glucose 108 H (74-99) mg/dL AST 40 H (14-36) U/L Total Protein 8.3 H (6.3-8.2) g/dL Assessment and Plan Assessment: 1. Irregular rhythm 2. Pneumonia patient started on IV antibiotics 3. History of GERD 4. History of seizure disorder 5. History of anxiety and depression 6. Ex-smoker DVT prophylaxis Lovenox. GI prophylaxis Pepcid Patient started on IV antibiotics 2-D echo ordered Cardiology and pulmonary service is consulted Repeat labs ordered Sputum and blood cultures ordered Time with Patient: Greater than 30 (Greater than 60% of the total time spent in counseling and coordination of care)
--- NOTE | 2023-11-13 16:43 | CA ---
Transthoracic Echo Report Name: Luiza Myers Age: 63 Gender: F : 1960 Exam Date: 11/13/2023 08:55 Exam Location: [facility] Ht (in): 66 Wt (lb): 225 Ordering Physician: Ubaldo Voss DO Attending/Referring Phys: Orthophotography Technician Chet Sin Procedure CPT: Indications: tachycardia Cardiac Hx: Technical Quality: Fair Contrast 1: Total Dose (mL): Contrast 2: Total Dose (mL): MEASUREMENTS (Male / Female) Normal Values 2D ECHO LV Diastolic Diameter PLAX 4.5 cm 4.2 - 5.9 / 3.9 - 5.3 cm LV Systolic Diameter PLAX 2.3 cm IVS Diastolic Thickness 1.2 cm 0.6 - 1.0 / 0.6 - 0.9 cm LVPW Diastolic Thickness 1.2 cm 0.6 - 1.0 / 0.6 - 0.9 cm LV Relative Wall Thickness 0.5 RV Internal Dim ED PLAX 2.7 cm LVOT Diameter 2.2 cm Aortic Root Diameter 2.6 cm LA Systolic Diameter LX 2.3 cm 3.0 - 4.0 / 2.7 - 3.8 cm LV Diastolic Volume MOD BP 31.1 cm??? 67 - 155 / 56 - 104 cm??? LV Systolic Volume MOD BP 14.4 cm??? 22 - 58 / 19 - 49 cm??? LV Ejection Fraction MOD BP 53.6 % >= 55 % LV Cardiac Index MOD BP 576.8 cm???/min???m??? LV Diastolic Volume MOD 4C 33.1 cm??? LV Systolic Volume MOD 4C 15.1 cm??? LV Ejection Fraction MOD 4C 54.3 % LV Cardiac Index MOD 4C 622.8 cm???/min???m??? LV Diastolic Length 4C 5.5 cm LV Systolic Length 4C 4.7 cm LV Diastolic Volume MOD 2C 27.1 cm??? LV Systolic Volume MOD 2C 11.7 cm??? LV Ejection Fraction MOD 2C 57.0 % LV Cardiac Index MOD 2C 534.0 cm???/min???m??? LV Diastolic Length 2C 6.1 cm LV Systolic Length 2C 5.7 cm LA Volume 55.2 cm??? 18 - 58 / 22 - 52 cm??? LA Volume Index 24.8 cm???/m??? 16 - 28 cm???/m??? DOPPLER AV Peak Velocity 129.1 cm/s AV Peak Gradient 6.7 mmHg AI Peak Velocity 382.7 cm/s AI Peak Gradient 58.6 mmHg AI Pressure Half Time 638.7 ms LVOT Peak Velocity 109.5 cm/s LVOT Peak Gradient 4.8 mmHg LVOT Velocity Time Integral 21.5 cm LVOT Stroke Volume 81.0 cm??? LVOT Stroke Volume Index 38.5 ml/m??? LVOT Cardiac Index 2804.2 cm???/min???m??? AV Area Cont Eq pk 3.2 cm??? MV Peak Velocity 120.0 cm/s MV Peak Gradient 5.8 mmHg MV Mean Velocity 65.6 cm/s MV Mean Gradient 2.2 mmHg MV Velocity Time Integral 36.3 cm MR Peak Velocity 490.3 cm/s MR Peak Gradient 96.2 mmHg Mitral E Point Velocity 99.8 cm/s Mitral A Point Velocity 109.8 cm/s Mitral E to A Ratio 0.9 MV Deceleration Time 285.1 ms TR Peak Velocity 194.8 cm/s TR Peak Gradient 15.2 mmHg Right Ventricular Systolic Press 20.2 mmHg PV Peak Velocity 73.2 cm/s PV Peak Gradient 2.1 mmHg FINDINGS Left Ventricle Normal LV size. Mild concentric LVH. Left ventricular ejection fraction is estimated at 50-55 %. Right Ventricle Normal right ventricular size. Right Atrium Normal right atrial size. Left Atrium Mild left atrial dilatation. LA volume index= 26ml/m2 Mitral Valve Mild to moderate mitral annulus calcification. Moderate MR. Aortic Valve Trileaflet aortic valve. Moderate AI. Tricuspid Valve Tricuspid valve not well visualized. Trace TR. Pulmonic Valve Pulmonic valve not well visualized. No pulmonic regurgitation. Pericardium Grossly normal. Aorta Normal size aortic root. CONCLUSIONS Normal LV function Moderate aortic regurgitation Moderate mitral regurgitation Previewed by: Dr. Ben Ricks MD (Electronically Signed) Final Date: 13 November 2023 16:42
[2023-11-13] MEDS: DIVALPROEX ER 250 MG TAB.ER.24H PO SCH (20:53)
[2023-11-13] MEDS: AMITRIPTYLINE HCL 50 MG TAB PO SCH (20:54)
[2023-11-13] MEDS: MELATONIN 5 MG TABLET PO SCH (20:54)
[2023-11-13] MEDS ORDERED: CYCLOBENZAPRINE 10 MG TAB PO SCH (21:00)
[2023-11-13] MEDS: guaiFENesin-Coden 100-10MG/5ML 10 ML CUP PO PRN (21:03)
[2023-11-14] MEDS: PANTOPRAZOLE 40 MG TABLET PO SCH (05:46)
[2023-11-14] MEDS: guaiFENesin-Coden 100-10MG/5ML 10 ML CUP PO PRN (05:48)
[2023-11-14 08:49] LABS: Basophils # (A) 0.05 X 10*3/uL (0.00-0.10); Basophils % (A) 0.6 %; Eosinophils # (A) 0.26 X 10*3/uL (0.04-0.35); Eosinophils % (A) 3.1 %; HCT 43.2 % (37.2-46.3); HGB 13.4 g/dL (12.0-15.0); Lymphocytes # (A) 1.77 X 10*3/uL (0.90-5.00); Lymphocytes % (A) 21.2 %; MCH 27.7 pg (27.0-32.0); MCV 89.3 FL (80.0-97.0); Mean Platelet Volume 9.6 FL (9.5-12.2); Monocytes # (A) 0.74 X 10*3/uL (0.20-1.00); Monocytes % (A) 8.9 %; NRBC Per 100 WBC 0 X 10*3/uL (0.00-0.01); Neutrophils % (A) 64.9 %; Platelet Count 331 X 10*3/uL (140-440); RBC 4.84 X 10*6/uL (4.10-5.20); RDW 14.8 % (11.5-14.5); WBC 8.33 X 10*3/uL (4.50-10.00)
[2023-11-14 08:50] LABS: ALT 24 U/L (8-44); AST 19 U/L (13-35); Albumin 4.1 g/dL (3.8-4.9); Albumin/Globulin Ratio 1.32 Ratio (1.60-3.17); Alkaline Phosphatase 120 U/L (41-126); BUN/Creat Ratio 23.57 Ratio (12.00-20.00); Blood Urea Nitrogen 16.5 mg/dL (9.0-27.0); Calcium 9.3 mg/dL (8.7-10.3); Chloride 104 mmol/L (96-109); Globulin 3.1 g/dL (1.6-3.3); Glucose 128 mg/dL (70-110); Potassium 3.8 mmol/L (3.5-5.5); Sodium 143 mmol/L (135-145); Total Bilirubin 0.2 mg/dL (0.3-1.2); Total Protein 7.2 g/dL (6.2-8.2)
[2023-11-14] MEDS ORDERED: FAMOTIDINE 20 MG TAB PO SCH (09:00)
[2023-11-14] MEDS ORDERED: ENOXAPARIN 40 MG/0.4 ML SYRINGE SQ SCH (09:00)
[2023-11-14] MEDS ORDERED: AMOXIC-POT CLAV 875-125MG 1 EACH TAB PO SCH (09:00)
[2023-11-14] MEDS: MULTIVITAMINS, THERA 1 EACH TAB PO SCH (09:10)
[2023-11-14] MEDS: AZITHROMYCIN 500 MG TAB PO SCH (09:10)
[2023-11-14] MEDS: METOPROLOL SUCCINATE (ER) 25 MG TAB.ER.24H PO SCH (09:10)
[2023-11-14] MEDS: CHOLECALCIFEROL 125 MCG (5000 IU) TABLET PO SCH (09:10)
[2023-11-14 09:31] VITALS: BP 101/68; PULSE 83; RESP 18; TEMP 98.4
--- NOTE | 2023-11-14 11:59 | P.PN ---
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 She has a past medical history of seizure disorder, headache, neurology workup of her cervical and lumbar spine. patient was seen by cardiology in July 2023 for atypical chest painthought to be GI related. We have been asked to evaluate the patient for tachyarrhythmia. Patient states that she went to the walk-in clinic for bronchitis and pinkeye and found to have her heart rate at 150 bpm and was told to come into the hospital for further ev aluation. She complains of chronic shortness of breath and excessive sweating. Heart rate is currently 118. Blood pressure 136/80. Patient is a nonsmoker, no alcohol use.patient is seen today in the emergency center waiting for a bed on the observation unit. EKG atrial tachycardia Chest x-ray: No acute process. CTA of the chest revealed no acute pulmonary embolism. Posterior right lung consolidation. Correlate for pneumonia. Mass is not excluded. Moderate fatty infiltration of the liver. WBC 11.1, hemoglobin 14.1. INR 0.9. D-dimer 0.97. A twice normal. BUN 25 creatinine 0.59. Blood sugar 108. AST 40 otherwise liver function tests are normal. Troponin negative 1. TSH 2.54. Influenza A, influenza B, RSV, Covid 19 not detected. Home cardiac medications: None Echocardiogram from 07/26/2023 revealed EF 55%, moderate MR, mild AR. 11/14 Echocardiogram reveals normal LV function, moderate aortic regurgitation, moderate mitral regurgitation. Telemetry is sinus rhythm, heart rate in 80s and 90s, blood pressure 128/79, pulse ox 97% on room air. Pulmonary medicine is following for pneumonia. Patient states and she appears to be much better today. Physical examination: Gen: This is a 63-year-old female. She is resting and appears comfortable. VS: reviewed HEENT: Head is atraumatic, normocephalic. Pupils equal, round. Sclerae is anicteric. LUNGS: Clear to auscultation. No wheezes or rhonchi. No intercostal retractions. HEART: Regular rate and rhythm. No murmur. Mid sternal chest tenderness. EXTREMITIES: No pedal edema. No calf tenderness. NEUROLOGICAL: Patient is awake, alert and oriented x3. Assessment: Atrial tachycardia Shortness of breath, dyspnea on exertion Pneumonia Plan: Continue patient on Toprol-XL 25 mg daily Patient is cleared for discharge may follow-up in the office for outpatient stress testing with Dr. Meyers. Thank you kindly for this consultation. Nurse practitioner note has been reviewed, I agree with documented findings and plan of care. Patient was seen and examined. Objective - Vital Signs Vital signs: Vital Signs Temp 98.4 F 11/14/23 07:00 Pulse 83 11/14/23 07:00 Resp 18 11/14/23 07:00 BP 101/68 11/14/23 07:00 Pulse Ox 97 11/14/23 07:00 FiO2 Intake & Output 11/13/23 11/14/23 11/14/23 18:59 06:59 18:59 Intake Total 118 Balance 118 Weight 102.058 kg Intake: Oral 118 Other: # Voids 3 - Labs CBC & Chem 7: 11/14/23 05:25 11/14/23 05:25 Labs: Abnormal Lab Results - Last 24 Hours (Table) 11/14/23 11/14/23 Range/Units 05:25 05:25 MCHC 31.0 L (32.0-37.0) g/dL RDW 14.8 H (11.5-14.5) % Immature Gran # 0.11 H (0.00-0.04) X 10*3/uL BUN/Creatinine Ratio 23.57 H (12.00-20.00) Ratio Glucose 128 H (70-110) mg/dL Total Bilirubin 0.2 L (0.3-1.2) mg/dL Albumin/Globulin Ratio 1.32 L (1.60-3.17) Ratio Microbiology - Last 24 Hours (Table) 11/12/23 19:30 Blood Culture - Preliminary Blood 11/12/23 19:15 Blood Culture - Preliminary Blood
--- NOTE | 2023-11-14 12:19 | P.DS ---
Providers Date of admission: 11/14/23 07:38 Expected date of discharge: 11/14/23 Attending physician: Danica Michel Consults: 11/12/23 19:17 Consult Physician Routine Consulting Provider: Lynette Bowen Consult Reason/Comments: Pneumonia, please review CT Do you want consulting provider notified?: Yes Consult Physician Routine Consulting Provider: August Gilbert Consult Reason/Comments: Tachydysrhythmia Do you want consulting provider notified?: Yes Primary care physician: Shadia Pritchard Hospital Course: Discharge diagnosis 1. Irregular rhythm 2. Pneumonia patient started on IV antibiotics 3. History of GERD 4. History of seizure disorder 5. History of anxiety and depression 6. Ex-smoker Hospital course This is a 63-year-old female patient who presented to the ER with concerns of elevated heart rate. Patient reports she has been having this issue for the past week with increased chest congestion patient went to urgent care instructed come the ER for concerns of elevated heart rate patient also reports that she's had increased shortness of breath while laying down. Patient denies any recent illness or infection. Patient does have a past medical history of GERD, seizure disorder, anxiety, depression and ex-smoker. Chest x-ray performed showing no acute pulmonary process. EKG showing atopic atrial tachycardia with short NH interval possible atrial flutter. Patient's d-dimer was elevated at 0.97 CTA was performed showing no acute pulmonary embolism. Posterior right lung consolidation correlate for pneumonia mass is not excluded and follow-up is recommended moderate fatty infiltration of liver. Patient's troponin negative. BNP 360. Implants are seen COVID-19 negative. White blood cell elevated at 11.1. Current vital signs temp 97.4, heart rate 83, respiratory rate 18, blood pressure 108/73 with pulse ox 97% on room air. Patient started on IV azithromycin and Rocephin. Cardiology and pulmonary service is consulted. 2-D echo and repeat chest x-ray has been ordered. Sputum blood and pro-calcitonin level ordered. At this time patient is resting comfortably in bed. Patient denies chest pain or shortness of breath. Patient denies nausea vomiting or diarrhea. Patient denies any urinary burning or frequency On 11/14/2023 patient is alert and oriented 3. Patient has been cleared for discharge from cardiology and pulmonary standpoint patient will be DC'd on Augmentin and Lopressor. Patient should follow-up with PCP consulting providers for further management. Preliminary blood culture negative. At this time patient denies chest pain or shortness of breath. Patient denies nausea vomiting or diarrhea. Patient denies any urinary burning or frequency Plan - Discharge Summary New Discharge Prescriptions: New Amoxic-Pot Clav 875-125Mg [Augmentin 875-125] 1 each PO Q12HR 7 Days #14 tab Metoprolol Succinate (ER) [Toprol XL] 25 mg PO DAILY 30 Days #30 tab Continue Divalproex ER [Depakote ER] 750 mg PO HS Pantoprazole [Protonix] 40 mg PO AC-BID #60 tab Cholecalciferol (Vitamin D3) [Vitamin D3] 1,250 mcg PO DAILY Cyclobenzaprine [Flexeril] 10 mg PO HS Amitriptyline HCl [Elavil] 100 mg PO HS Melatonin [Melatonin ER] 10 mg PO HS Multivitamin [Multivitamins Adult Gummies] 1 tab PO DAILY Discharge Medication List Amitriptyline HCl [Elavil] 100 mg PO HS 07/26/23 [History] Cyclobenzaprine [Flexeril] 10 mg PO HS 07/26/23 [History] Divalproex ER [Depakote ER] 750 mg PO HS 07/26/23 [History] Melatonin [Melatonin ER] 10 mg PO HS 07/26/23 [History] Pantoprazole [Protonix] 40 mg PO AC-BID #60 tab 07/27/23 [Rx] Cholecalciferol (Vitamin D3) [Vitamin D3] 1,250 mcg PO DAILY 10/17/23 [History] Multivitamin [Multivitamins Adult Gummies] 1 tab PO DAILY 10/17/23 [History] Amoxic-Pot Clav 875-125Mg [Augmentin 875-125] 1 each PO Q12HR 7 Days #14 tab 11/14/23 [Rx] Metoprolol Succinate (ER) [Toprol XL] 25 mg PO DAILY 30 Days #30 tab 11/14/23 [Rx] Follow up Appointment(s)/Referral(s): Shadia Pritchard MD [Primary Care Provider] - 1-2 days Homar Meyers DO [STAFF PHYSICIAN] - 1 Week Trevor Galeana DO [Doctor of Osteopathic Medicine] - 2 Weeks Discharge Disposition: HOME SELF-CARE
--- NOTE | 2023-11-14 14:09 | P.PN ---
Subjective Progress Note Date: 11/14/23 This is a very pleasant 63-year-old female patient with a known history of esophageal reflux disease, anxiety/depression, seizure disorder, former smoker. He presented to the emergency room yesterday with a 1 week history of increasing shortness of breath, cough congestion sore throat and conjunctivitis. She was seen in the urgent care yesterday who referred her to the emergency room. Chest x-ray revealed no acute pulmonary process. CT angiogram ruled out pulmonary embolism however there was a noted posterior right lung consolidation or possible early pneumonia versus mass. Moderate fatty infiltration of the liver. White count 11.1. Hemoglobin 14.1. Platelets 347. D-dimer 0.97. Sodium 140. Potassium 4.9. Bicarb 25. BUN 25. Creatinine 0.59. Lactic acid 0.9. ProBNP 360. Valproic acid 38.3. Viral screen negative. She is seen today in the emergency department. Currently sitting up in a stretcher. Awake and alert in no acute distress. Maintaining good O2 saturations in the upper 90s on room air. She's afebrile. Hemodynamically stable. She's been initiated on ceftriaxone and azithromycin. Lovenox for DVT prophylaxis. The patient is seen today 11/14/2023 in follow-up on the regular medical floor. She is currently resting comfortably in bed. Awake and alert in no acute distress. She is maintaining good O2 saturations in the 90s on room air. No IV fluids. She does have some rib pain from frequent coughing that has improved on Robitussin. Her pro-calcitonin was 0.04. She continues with some crackles in the right base. Blood cultures revealed no growth. White count 8.3. Hemoglobin 13.4. Sodium 143. Potassium 3.8. Bicarb 27. BUN 17. Creatinine 0.7. Glucose 128. She remains on ceftriaxone and azithromycin, bronchodilators, Lovenox for DVT prophylaxis. Objective - Vital Signs Vital signs: Vital Signs Temp 98.4 F 11/14/23 07:00 Pulse 83 11/14/23 07:00 Resp 18 11/14/23 07:00 BP 101/68 11/14/23 07:00 Pulse Ox 99 11/14/23 12:06 FiO2 21 11/14/23 12:06 Intake & Output 11/13/23 11/14/23 11/14/23 18:59 06:59 18:59 Intake Total 118 Balance 118 Weight 102.058 kg Intake: Oral 118 Other: # Voids 3 - Exam GENERAL EXAM: Alert, active, pleasant 63-year-old female, on room air, com fortable in no apparent distress. HEAD: Normocephalic. EYES: Normal reaction of pupils, equal size. NOSE: Clear with pink turbinates. THROAT: No erythema or exudates. NECK: No masses, no JVD. CHEST: No chest wall deformity. LUNGS: Equal air entry with crackles in the right lung base. CVS: S1 and S2 normal with no audible murmur, regular rhythm. ABDOMEN: No hepatosplenomegaly, normal bowel sounds, no guarding or rigidity. SPINE: No scoliosis or deformity SKIN: No rashes CENTRAL NERVOUS SYSTEM: No focal deficits, tone is normal in all 4 extremities. EXTREMITIES: There is no peripheral edema. No clubbing, no cyanosis. Peripheral pulses are intact. - Labs CBC & Chem 7: 11/14/23 05:25 11/14/23 05:25 Labs: Abnormal Lab Results - Last 24 Hours (Table) 11/14/23 11/14/23 Range/Units 05:25 05:25 MCHC 31.0 L (32.0-37.0) g/dL RDW 14.8 H (11.5-14.5) % Immature Gran # 0.11 H (0.00-0.04) X 10*3/uL BUN/Creatinine Ratio 23.57 H (12.00-20.00) Ratio Glucose 128 H (70-110) mg/dL Total Bilirubin 0.2 L (0.3-1.2) mg/dL Albumin/Globulin Ratio 1.32 L (1.60-3.17) Ratio Microbiology - Last 24 Hours (Table) 11/12/23 19:30 Blood Culture - Preliminary Blood 11/12/23 19:15 Blood Culture - Preliminary Blood Assessment and Plan Assessment: Dyspnea with cough and congestion secondary to suspected early right lower lobe pneumonia and viral screen negative. Pro-calcitonin negative at 0.04 History of seizures Esophageal reflux disease History of anxiety/depression Former smoker Plan: The patient was seen and evaluated Labs and medications reviewed Discontinue ceftriaxone and azithromycin Add Augmentin 5 days Currently stable and on room air Cleared for discharge from the pulmonary standpoint Follow up in our office in 1-2 weeks' This patient was seen independently by the pulmonary nurse practitioner addressing pulmonary issues I have personally seen and examined the patient, performed the documentation and the assessment and plan as written. Number of minutes spent on the visit: 22.
== END 2023-11-14 14:24 | disposition home or self-care (01) | DRG 194 ==
LOC: EC 15:50 → 6NMEDSUR 19:18 → OBSVTOIN 11-14 07:38
PROVIDERS: ADMIT Internal Medicine; ATTEND Internal Medicine
DX: J18.9 Pneumonia, unspecified organism (principal); I47.19 Other supraventricular tachycardia; K76.0 Fatty (change of) liver, not elsewhere classified; G40.909 Epilepsy, unspecified, not intractable, without status epilepticus; H10.029 Other mucopurulent conjunctivitis, unspecified eye; R09.02 Hypoxemia; K21.9 Gastro-esophageal reflux disease without esophagitis; I08.0 Rheumatic disorders of both mitral and aortic valves; F32.A Depression, unspecified; F41.9 Anxiety disorder, unspecified; Z79.899 Other long term (current) drug therapy; Z87.891 Personal history of nicotine dependence; Z86.14 Personal history of Methicillin resistant Staphylococcus aureus infection; Z88.8 Allergy status to other drugs, medicaments and biological substances
CPT/HCPCS: 36415; 71046; 71275; 80053; 80164; 83605; 83735; 83880; 84145; 84443; 84484; 85025; 85379; 85610; 85730; 87040; 87449; 87636; 93005; 93306; 94760; 96361; 96365; 96366; 96367; 99285

== ENCOUNTER → 2024-01-24 | Outpatient (CLI) | payer MEDICARE, BC ==
[2024-01-25 03:10] LABS: Creatine Kinase 63 U/L (26-186); Rheumatoid Factor, Qnt 72 IU/mL (0-15)
[2024-01-25 05:11] LABS: Anti-DNA, DS unit <1.0 IU/mL; Anti-Smith Ab Interp Negative (Negative); Centromere Antibody >8.0 AI; Centromere Antibody Interp POSITIVE; DNA Double-Stranded Negative (Negative); JO-1 IgG Antibody <0.2 AI; Scleroderma SC-70 Ab <0.2 AI
[2024-01-25 05:38] LABS: Cyclic Citrull Pep IgG Unit <1.5 U/mL (<=3.9); Cyclic Citrullinated Pep IgG Negative
[2024-01-25 08:44] LABS: HLA B27 NEGATIVE
[2024-01-25 10:42] LABS: Aldolase 5.2 U/L (1.2-7.6)
[2024-01-25 10:43] LABS: Angiotensin-1 Converting Enz. 52 U/L (8-52)
[2024-01-25 13:02] LABS: Histone Antibody 0.6 UNITS (<1.0)
== END | disposition home or self-care (01) ==
LOC: LABWHC1 15:17
PROVIDERS: ATTEND Psychiatry & Neurology Neurology
DX: M54.16 Radiculopathy, lumbar region (principal); R76.8 Other specified abnormal immunological findings in serum; R51.9 Headache, unspecified
CPT/HCPCS: 36415; 82085; 82164; 82550; 83516; 86038; 86039; 86200; 86225; 86235; 86431; 86812

== ENCOUNTER → 2024-01-24 | Outpatient (CLI) | payer MEDICARE, BC ==
--- NOTE | 2024-01-24 18:25 | XR ---
EXAMINATION TYPE: XR Hip Bilateral Complete DATE OF EXAM: 01/24/2024 4:35 PM CLINICAL INDICATION:Female, 63 years old with history of M25.55 Bilat hip pain; PH[facility] COMPARISON: None. TECHNIQUE: XR Hip Bilateral Complete; hip was examined in the frontal and lateral projections and a A P pelvis. FINDINGS: No evidence for acute process, joint dislocation or significant soft tissue swelling. Osteo phyte formation of the superior acetabulum of the hip. IMPRESSION: 1. No evidence for acute process. 2. Mild hip osteoarthrosis.
== END | disposition home or self-care (01) ==
LOC: RADXRMAIN 16:09
PROVIDERS: ATTEND Psychiatry & Neurology Neurology
DX: M16.0 Bilateral primary osteoarthritis of hip (principal); R25.1 Tremor, unspecified; R51.9 Headache, unspecified; F41.9 Anxiety disorder, unspecified; R26.89 Other abnormalities of gait and mobility; R41.840 Attention and concentration deficit
CPT/HCPCS: 73521

== ENCOUNTER → 2024-02-05 | Outpatient (CLI) | payer MEDICARE, BC ==
--- NOTE | 2024-02-12 08:56 | NM ---
EXAMINATION TYPE: NM DatScan Brain SPECT DATE OF EXAM: 02/05/2024 COMPARISON: NONE HISTORY: Tremor TECHNIQUE: 10 drops of Lugol's solution was administered 1 hour prior to injection as a thyroid bloc ole agent. After the administration of 4.3 mCi I-123 Ioflupane DaTscan. Images obtained [address] injection. SPECT images of the brain were acquired with axial and coronal reconstructions. FINDINGS: The axial SPECT images demonstrate normal background activity. Accounting for head tilt, t here appears to be slight asymmetrically blunted comma-shaped appearance of the right corpus striatum . IMPRESSION: Slightly blunted striatal activity on the right may indicate early changes of idiopathic Parkinson's disease or Parkinsonian syndrome.
== END | disposition home or self-care (01) ==
LOC: RADNMMAIN 10:49
PROVIDERS: ATTEND Psychiatry & Neurology Neurology
DX: F41.9 Anxiety disorder, unspecified (principal); R25.1 Tremor, unspecified; R26.9 Unspecified abnormalities of gait and mobility; R51.9 Headache, unspecified; R26.89 Other abnormalities of gait and mobility; R41.840 Attention and concentration deficit
CPT/HCPCS: 78803; A9584

== ENCOUNTER → 2024-04-21 | Outpatient (CLI) | payer MEDICARE, BC | END | disposition home or self-care (01) | LOC: LABWHC1 14:57 | PROVIDERS: ATTEND Psychiatry & Neurology Neurology | DX: R56.9 Unspecified convulsions (principal) | CPT/HCPCS: 36415; 80201 ==

== ENCOUNTER → 2025-02-16 | Outpatient (CLI) | payer MEDICARE, BC ==
[2025-02-16 15:38] LABS: Basophils # (A) 0.08 X 10*3/uL (0.00-0.10); Basophils % (A) 1.1 %; Eosinophils # (A) 0.21 X 10*3/uL (0.04-0.35); Eosinophils % (A) 2.8 %; HCT 42.5 % (37.2-46.3); HGB 12.9 g/dL (12.0-15.0); Lymphocytes # (A) 1.36 X 10*3/uL (0.90-5.00); Lymphocytes % (A) 17.9 %; MCH 26.8 pg (27.0-32.0); MCHC 30.4 g/dL (32.0-37.0); MCV 88.4 FL (80.0-97.0); Mean Platelet Volume 11.8 FL (9.5-12.2); Monocytes # (A) 0.65 X 10*3/uL (0.20-1.00); Monocytes % (A) 8.5 %; NRBC Per 100 WBC 0 X 10*3/uL (0.00-0.01); Neutrophils # (A) 5.28 X 10*3/uL (1.80-7.70); Neutrophils % (A) 69.3 %; Platelet Count 272 X 10*3/uL (140-440); RBC 4.81 X 10*6/uL (4.10-5.20); RDW 14.9 % (11.5-14.5); WBC 7.61 X 10*3/uL (4.50-10.00)
[2025-02-16 15:47] LABS: ALT 22 U/L (8-44); Blood Urea Nitrogen 20.3 mg/dL (9.0-27.0)
[2025-02-16 15:48] LABS: AST 19 U/L (13-35)
== END | disposition home or self-care (01) ==
LOC: LABWHC1 10:12
PROVIDERS: ATTEND Internal Medicine Rheumatology
DX: M05.79 Rheumatoid arthritis with rheumatoid factor of multiple sites without organ or systems involvement (principal)
CPT/HCPCS: 36415; 82565; 84450; 84460; 84520; 85025

== ENCOUNTER → 2025-06-05 | Outpatient (CLI) | payer MEDICARE, BC ==
--- NOTE | 2025-06-05 14:40 | XR ---
EXAMINATION TYPE: XR KUB DATE OF EXAM: 06/05/2025 COMPARISON: NONE CLINICAL INDICATION: Female, 65 years old with history of N20.1 N20.0 Calculus kidney and ureter; TECHNIQUE: XR KUB views of the abdomen. FINDINGS: The osseous structures are intact. The bowel gas pattern is nonspecific. Lung bases are clear. Pros thetic left hip. Mild arthropathy right hip. Generalized demineralization and degenerative change of the spine. Calcification within the pelvis is stable possibly related to uterine fibroid. Previous noted left renal calculus is not seen on today's exam with certainty. There is a 5 mm calcif ication overlying the right kidney. IMPRESSION: 1. 5 mm right renal calculus suspected. 2. Marked improvement in the previously noted suspected left renal pelvic calcification with no defin itive calcification identified.. [facility] Gu[place]ro, , 06/05/2025 2:38 PM
== END | disposition home or self-care (01) ==
LOC: RADXRMAIN 12:46
PROVIDERS: ATTEND Urology
DX: N20.2 Calculus of kidney with calculus of ureter (principal)
CPT/HCPCS: 74018